=== PATIENT | male | born 1975 | race Native Hawaiian/Other Pacific Islander ===

== ENCOUNTER 2017-07-21 11:12 | Outpatient (CLI) | payer OTHER ==
[2017-07-21 11:51] LABS: PLATELET COUNT 330 K/uL (142-355)
[2017-07-21 12:13] LABS: POTASSIUM 4.4 mmol/L (3.6-5.2)
== END 2017-07-21 19:58 | disposition home or self-care (01) ==
LOC: RAD 11:12
PROVIDERS: Family Medicine
DX: I20.8 Other forms of angina pectoris (principal); E11.9 Type 2 diabetes mellitus without complications; E78.00 Pure hypercholesterolemia, unspecified; R82.99 Other abnormal findings in urine
CPT/HCPCS: 36415; 80053; 80061; 81000; 82550; 83036; 83735; 84439; 84443; 84484; 85027; 87088; 93005